=== PATIENT | male | born 1985 | race Caucasian/White ===

== ENCOUNTER 2019-03-14 00:01 | Inpatient (IN) | payer BC, OTHER ==
[~2019-03-14] VITALS: Ht 182.9 cm; Wt 61.2 kg
[2019-03-14 00:05] VITALS: BP 141/86
--- NOTE | 2019-03-14 00:05 | NUR ---
ED Nurse Note: Pt arrived ambulatory with steady gait with complaint of abdominal pain that began occuring since Saturday. Pt states pain is located mainly on LUQ and radiates throughout abdomen. Pain described as sharp and abdomen tender to touch. Pt has hx of gallbladder removal. Nausea and vomiting experienced. Pt has also been experiencing a decreased appetite. VSS.
[2019-03-14 00:28] LABS: BASOPHILS % (AUTO) 1.1 % (0.0-2.0); EOSINOPHILS % (AUTO) 2.9 % (0.0-3.0); HEMATOCRIT 43.5 % (42.0-52.0); HEMOGLOBIN 15.6 G/DL (14.2-18.0); LYMPHOCYTES % (AUTO) 38.9 % (20.0-45.0); MEAN CORPUSCULAR VOLUME 94 FL (80-99); MONOCYTES % (AUTO) 12.6 % (1.0-10.0); NEUTROPHILS % (AUTO) 44.7 % (45.0-75.0); PLATELET COUNT 167 K/UL (150-450); RED BLOOD COUNT 4.62 M/UL (4.70-6.10); RED CELL DISTRIBUTION WIDTH 10.7 % (11.6-14.8)
[2019-03-14] MEDS ORDERED: Ketorolac 30mg Inj IV ONE (00:30)
--- NOTE | 2019-03-14 00:32 | Emergency Room Report ---
History of Present Illness General Chief Complaint: Abdominal Pain Source: Patient Present Illness HPI This is a 33-year-old male who had a previous cholecystectomy. He presents with chief complaint of abdominal pain. Pain is okay in the epigastric and right upper quadrant area. Radiate to the back. Pain is 8 out of 10. Has nausea vomiting. Worse with food. No fever or chills. No diarrhea. Onset for the last 3 days. Allergies: Coded Allergies: No Known Allergies (Unverified , 03/14/19) Patient History Past Medical History: see triage record, old chart reviewed Past Surgical History: allison Pertinent Family History: none Social History: Denies: smoking Immunizations: other Reviewed Nursing Documentation: PMH: Agreed; PSxH: Agreed Review of Systems Eye: Denies: eye pain, blurred vision ENT: Denies: ear pain, nose congestion, throat swelling Respiratory: Denies: cough, shortness of breath Cardiovascular: Denies: chest pain, palpitations Gastrointestinal: Reports: abdominal pain, nausea, vomiting; Denies: diarrhea Musculoskeletal: Denies: back pain, joint pain Skin: Denies: rash Neurological: Denies: headache, numbness Endocrine: Denies: increased thirst, increased urine Hematologic/Lymphatic: Denies: easy bruising All Other Systems: negative except mentioned in HPI Physical Exam Vital Signs Date Time Temp Pulse Resp B/P (MAP) Pulse Ox O2 Delivery O2 Flow Rate FiO2 03/14/19 00:02 97.7 75 17 98 Room Air vitals normal Sp02 EP Interpretation: reviewed, normal General Appearance: well appearing, no apparent distress, alert Head: normocephalic, atraumatic Eyes: bilateral eye PERRL, bilateral eye EOMI ENT: hearing grossly normal, normal pharynx Neck: full range of motion, supple, no meningismus Respiratory: chest non-tender, lungs clear, normal breath sounds Cardiovascular #1: regular rate, rhythm, no murmur Gastrointestinal: normal bowel sounds, no mass, no organomegaly, no bruit, non- distended, tenderness - Right upper quadrant Musculoskeletal: back normal, gait/station normal, normal range of motion Psychiatric: mood/affect normal Skin: warm/dry Medical Decision Making Diagnostic Impression: Primary Impression: Retained gallstones following laparoscopic cholecystectomy ER Course Patient with right upper quadrant pain. He had a cholecystectomy done 2 years ago. Labs showed evidence of retained gallstone. His bilirubin is elevated. His LFTs are elevated. Lipase is mildly elevated. CT scan showed cholecystectomy and a common bile duct stent. There is dilated intra-and extrahepatic biliary tree. Because of this, patient will be admitted versus transfer based on his insurance. I spoke with REUBEN for [facility]. He accepted pt for transfer to [facility]. Lab Results Impression labs with elevated bilirubin and LFTs Rhythm Strip Diag. Results EP Interpretation: yes Rate: 68 Rhythm: NSR, no PVC's, no ectopy CT/MRI/US Diagnostic Results CT/MRI/US Diagnostic Results : Imaging Test Ordered: CT abd and pelvis Impression Read by radiologist. Cholecystectomy and common bile duct stent. Dilated biliary tree. No obvious stone. Last Vital Signs Date Time Temp Pulse Resp B/P (MAP) Pulse Ox O2 Delivery O2 Flow Rate FiO2 03/14/19 00:02 97.7 75 17 98 Room Air Status: improved Disposition: XFER SHT-TRM HOSP Condition: Stable Referrals: [facility],REFERRING (PCP) Misael Gamboa MD March 14, 2019 00:32
[2019-03-14 00:36] LABS: ANION GAP 8 mmol/L (5-15); BLOOD UREA NITROGEN 12 mg/dL (7-18); CARBON DIOXIDE 28 MMOL/L (21-32); CHLORIDE 101 MMOL/L (98-107); POTASSIUM 3.1 MMOL/L (3.5-5.1); SODIUM 137 MMOL/L (136-145)
[2019-03-14 00:47] LABS: ALANINE AMINOTRANSFERASE 284 U/L (12-78); ALBUMIN 3.7 G/DL (3.4-5.0); ALBUMIN/GLOBULIN RATIO 0.9 (1.0-2.7); ALKALINE PHOSPHATASE 292 U/L (46-116); ASPARTATE AMINO TRANSFERASE 107 U/L (15-37); BILIRUBIN,TOTAL 3.3 MG/DL (0.2-1.0)
--- NOTE | 2019-03-14 00:57 | Diagnostic Imaging Report ---
EXAM: CT Abdomen + Pelvis Without Intravenous Contrast CLINICAL HISTORY: PAIN TECHNIQUE: Axial computed tomography images of the abdomen + pelvis without intravenous contrast. CTDI is 11.42 mGy and DLP is 621 mGy-cm. One or more of the following dose reduction techniques were used: automated exposure control, adjustment of the mA and/or kV according to patient size, use of iterative reconstruction technique. COMPARISON: No relevant prior studies available. FINDINGS: Atelectasis at lung bases. Cholecystectomy. Biliary ectasia, both intra-and extrahepatic. CBD stent. No radiodense choledocholithiasis. No evidence for acute pancreatitis. Nonobstructive right renal stone. No ureteral calculus or hydronephrosis. No bowel obstruction. Nonspecific gastric distention may related to postprandial state. No evidence for appendicitis or other acute process. IMPRESSION: Cholecystectomy and CBD stent. Dilated intra-and extrahepatic biliary tree. No radiodense choledocholithiasis. Correlate with labs. MRCP or other follow-up could be obtained, as clinically indicated. No evidence for appendicitis or other acute process. Nonobstructive right renal stone.
[2019-03-14] MEDS ORDERED: Morphine Sulfate 4mg/ml Inj (IV USE ONLY) IVP ONE ×2 (01:00→03:45)
--- NOTE | 2019-03-14 02:00 | NUR ---
ED Nurse Note: Pt resting comfortably. Showing no signs of acute distress. VSS. Will continue to monitor
[2019-03-14 04:02] LABS: APPEARANCE,URINE CLOUDY; BILIRUBIN, URINE NEGATIVE (NEGATIVE); GLUCOSE, URINE (UA) NEGATIVE (NEGATIVE); KETONES,URINE NEGATIVE (NEGATIVE); LEUKOCYTE ESTERASE ,URINE NEGATIVE (NEGATIVE); NITRITE,URINE NEGATIVE (NEGATIVE); PH,URINE 7 (4.5-8.0); PROTEIN,URINE 1+ (NEGATIVE); UROBILINOGEN,URINE 4 MG/DL (0.0-1.0)
--- NOTE | 2019-03-14 04:15 | NUR ---
ED Nurse Note: Pt transfered to M/S floor. Report given to LETY Dumont. Pt A/Ox4, IV site intact and patent. Pt resting comfortably, VSS. Showing no signs of acute distress. Pt taken to floor and accompanied by gold layer. Belongings taken with patient along with belongings list.
[2019-03-14 04:18] LABS: COLOR,URINE YELLOW
[2019-03-14 04:30] VITALS: BP 150/102
--- NOTE | 2019-03-14 04:50 | NUR ---
NURSE NOTES: Received report from LETY Stearns from ER. Patient arrived via mother lee at the bedside. IV access asymptomatic running KCl 10meq/100ml from ER. Pt oriented to room. Call light and belongings within reach. Pt appears fatigued and anxious. Called Dr Florence, ordered NPO and NS at 100ml/hr. Dr Florence will arrive shortly.
--- NOTE | 2019-03-14 07:38 | NUR ---
HAND-OFF: Report given to LETY Patrick. Patient asleep, no s/s of acute distress.
--- NOTE | 2019-03-14 07:42 | NUR ---
NURSE NOTES: Received report from Dione DAVIDSON. Patient is asleep during rounds, no acute distress noted. IV intact and asymptomatic, IVF running per order. Per report, Dr. Florence was contacted regarding admission orders this morning at approximately 0500, MD stated he will be in to see patient and enter admission orders. Side rails upx2, bed low and locked, call light in reach. Will continue to monitor.
[2019-03-14 08:00] VITALS: BP 137/86
[2019-03-14] MEDS ORDERED: OMEPRAZOLE40 M1 ORAL (08:07)
[2019-03-14] MEDS ORDERED: D5NS 1,000 ML IV SCH ×2 (08:15→16:00)
[2019-03-14] MEDS: Morphine Sulfate 2mg/ml Inj(IV/IM USE ONLY) IVP PRN ×2 (08:30→12:56)
--- NOTE | 2019-03-14 09:00 | History and Physical Report ---
DATE OF ADMISSION: 03/14/2019 REASON FOR ADMISSION: Abdominal pain. HISTORY OF PRESENT ILLNESS: The patient is a 33-year-old gentleman, who previously had a cholecystectomy two years ago at [facility]. He presented overnight for complaints of abdominal pain. States the abdominal pain started approximately Saturday and radiates to his back on an 8/10 scale. No nausea, vomiting, or diarrhea. States that he drinks only heavily on Saturday, only once a week. Denies any illicit drug use. He was resting comfortably with complaints of right upper quadrant pain. ALLERGIES: No known drug allergies. PAST MEDICAL HISTORY: Cholecystitis. PAST SURGICAL HISTORY: Cholecystectomy. SOCIAL HISTORY: Denies tobacco, illicit drug use. Does drink on a social regular basis. FAMILY HISTORY: Positive for hypertension. REVIEW OF SYSTEMS: NEUROLOGIC: The patient denies headache, change in vision, syncope, or presyncopal episodes. CARDIOVASCULAR: No current chest pain, palpitations, or angina. PULMONARY: No difficulty breathing, productive cough, or sputum. GASTROINTESTINAL/GENITOURINARY: The patient complaining of right upper quadrant abdominal pain and some nausea, but no diarrhea. ENDOCRINOLOGY: No night sweats, fevers, or chills. MUSCULOSKELETAL: The patient is feeling weak, tired, and fatigue. LABORATORY DATA: Laboratories dated March 14, 2019, potassium 3.1, sodium 137, creatinine 1. AST and ALT 107 and 284 respectively. Alkaline phosphatase 292. Lipase 471. White cell count 4, hemoglobin 15.6, and platelet count 167. PHYSICAL EXAMINATION: VITAL SIGNS: Blood pressure 150/102, respiratory rate 17, pulse 98, temperature , and 99% saturation on room air. GENERAL: The patient awake, alert, in no overt distress. HEENT: Extraocular muscles intact. No lymphadenopathy noted. CARDIOVASCULAR: S1, S2. No rubs or gallops. Regular rate. PULMONARY: Clear to auscultation bilaterally. No rales, rhonchi, or wheezes. ABDOMEN: Nondistended and nontender. Good bowel sounds. EXTREMITIES: No edema noted. ASSESSMENT AND PLAN: 1. Abdominal pain with transaminitis and elevated bilirubin and lipase. CT of the abdomen and pelvis did demonstrate intra and extrahepatic dilated biliary tree. The patient did have a previous cholecystectomy. General Surgery consult has been placed for further evaluation. The patient will be placed on NPO with IV hydrations and pain management. 2. DVT prophylaxis with SCDs. 3. Dehydration. At this time, the patient will be initiated on IV fluids. Edenilson Florence MD DR: NETO JOB#: [id number] CC:
--- NOTE | 2019-03-14 09:58 | NUR ---
NURSE NOTES: Informed Dr. Florence of patient's fever. MD aware, orders given and entered. Will carry out as ordered.
--- NOTE | 2019-03-14 11:39 | NUR ---
NURSE NOTES: Patient still febrile but temperature decreasing. Ice packs placed in bilateral axilla, blankets removed. Will continue to monitor.
[2019-03-14 11:53] VITALS: BP 129/58
--- NOTE | 2019-03-14 14:14 | NUR ---
CASE MANAGEMENT: REVIEW 33Y/M PRESENTED TO ED FROM HOME CC: ABD PAIN . VOMITING . PMHX CHOLECYSTECTOMY . COMMON BILE DUCT STENT SI: ABD PAIN T 102.5 HR 113 RR 22 BP 129/58 SAT 100% ROOM AIR WBC 4.0 T BILI 3.3 D BILI 3.0 AST 107 ALT 284 ALK PHOS 292 IS: TORADOL IV X1 ZOFRAN IV X1 MORPHINE IV X1 KCl 10mEq IVF X1 NS IVF BOLUS X1 PATIENT ADMITTED TO MED/SURG UNIT 03/14/2019 DCP: PATIENT IS FROM HOME
--- NOTE | 2019-03-14 15:26 | NUR ---
CASE MANAGEMENT: DCPNOTE PER MD ORDER PATIENT REFERRED TO [facility] [place] [place] TO TRANSFER TO A CONTRACTED HOSPITAL S/W [facility] [place] [place] [phone] / WORKING ON GETTING AND BED . TRANSPORTATION ARRANGEMENTS WILL BE GIVEN TO UNIT RN. CHARGE NURSE JAVIER MOLINA . UNIT NURSE TRAE MOLINA
--- NOTE | 2019-03-14 15:46 | Consultation ---
History of Present Illness General Date patient seen: March 14, 2019 Reason for Hospitalization: Abdominal Pain Present Illness HPI This is a 33-year-old male who presented to [facility] complaining of worsening right upper quadrant abdominal pain with radiation to the back with associated nausea emesis and fevers. Patient states that approximately 3 or 4 days ago began no subjective fevers. Since he has developed abdominal pain which is sharp 10 out of 10 right upper quadrant pain with radiation to the upper back and is associated with nausea and emesis. States no similar symptoms in the past. Has a history of cholecystectomy which was done at [facility] 2 years ago. States he has been fine since until recent events. On admission identified to have abnormal labs elevated LFTs elevated T bili elevated lipase history of cholecystectomy and common bile duct stent. Surgery called to evaluate. Allergies: Coded Allergies: No Known Allergies (Unverified , 03/14/19) Medication History Scheduled Omeprazole (Omeprazole), 40 MG ORAL DAILY, (Reported) Patient History History Provided By: Patient, Medical Record, PMD Healthcare decision maker Resuscitation status Advanced Directive on File Past Medical/Surgical History Past Medical/Surgical History: (1) Abdominal pain (2) Biliary stent obstruction (3) Cholangitis Review of Systems Review of Symptoms General ROS: no weight loss or fever Psychological ROS: no depression or mood changes, no memory loss Ophthalmic ROS: no visual changes or eye irritation ENT ROS: no nasal congestion, hearing loss, dizziness Allergy and Immunology ROS: no allergic symptoms or urticaria Hematological and Lymphatic ROS: no swollen glands, unusual bleeding or bruising Endocrine ROS: no polyuria, polydipsia, weight changes, temperature intolerance Respiratory ROS: no cough, shortness of breath, or wheezing Cardiovascular ROS: no chest pain or dyspnea on exertion Gastrointestinal ROS: abdominal pain, no bright red blood in stool. Musculoskeletal ROS: no myalgias or arthralgias Neurological ROS: no TIA or stroke symptoms Dermatological ROS: no new or changing skin lesions, rashes or pruritis Physical Exam Physical Exam General appearance: alert, cooperative, no distress, appears stated age Head: Normocephalic, without obvious abnormality, atraumatic Eyes: conjunctivae/corneas clear. PERRL, EOM's intact. Fundi benign Throat: Lips, mucosa, and tongue normal. Teeth and gums normal Neck: supple, symmetrical, trachea midline, no adenopathy, thyroid: not enlarged, symmetric, no tenderness/mass/nodules, no carotid bruit and no JVD Lungs: clear to auscultation bilaterally Heart: regular rate and rhythm, S1, S2 normal, no murmur, click, rub or gallop Abdomen: soft, tender. Bowel sounds normal. No masses, no organomegaly Extremities: extremities normal, atraumatic, no cyanosis or edema Pulses: 2+ and symmetric Skin: Skin color, texture, turgor normal. No rashes or lesions Neurologic: Grossly normal Last 24 Hour Vital Signs Date Time Temp Pulse Resp B/P (MAP) Pulse Ox O2 Delivery O2 Flow Rate FiO2 03/14/19 13:26 101.9 03/14/19 13:20 101.9 03/14/19 11:53 101.5 113 22 129/58 (81) 100 03/14/19 11:34 101.5 03/14/19 09:39 102.5 98 03/14/19 09:00 Room Air 03/14/19 08:00 102.8 106 21 137/86 (103) 97 03/14/19 04:57 Room Air 03/14/19 04:30 99.0 98 17 150/102 (118) 99 03/14/19 04:15 98.7 81 22 129/99 99 Room Air 03/14/19 01:44 97.7 03/14/19 01:15 97.7 03/14/19 00:05 75 17 Room Air 03/14/19 00:05 97.7 78 17 141/86 98 Room Air 03/14/19 00:02 97.7 75 17 98 Room Air Intake and Output 03/13/19 03/14/19 18:59 06:59 Intake Total 200 ml Balance 200 ml Intake IV Total 200 ml Laboratory Tests Test 03/14/19 00:20 03/14/19 03:45 03/14/19 12:53 White Blood Count 4.0 K/UL (4.8-10.8) L Red Blood Count 4.62 M/UL (4.70-6.10) L Hemoglobin 15.6 G/DL (14.2-18.0) Hematocrit 43.5 % (42.0-52.0) Mean Corpuscular Volume 94 FL (80-99) Mean Corpuscular Hemoglobin 33.7 PG (27.0-31.0) H Mean Corpuscular Hemoglobin Concent 35.8 G/DL (32.0-36.0) Red Cell Distribution Width 10.7 % (11.6-14.8) L Platelet Count 167 K/UL (150-450) Mean Platelet Volume 8.4 FL (6.5-10.1) Neutrophils (%) (Auto) 44.7 % (45.0-75.0) L Lymphocytes (%) (Auto) 38.9 % (20.0-45.0) Monocytes (%) (Auto) 12.6 % (1.0-10.0) H Eosinophils (%) (Auto) 2.9 % (0.0-3.0) Basophils (%) (Auto) 1.1 % (0.0-2.0) Sodium Level 137 MMOL/L (136-145) Potassium Level 3.1 MMOL/L (3.5-5.1) L Chloride Level 101 MMOL/L (98-107) Carbon Dioxide Level 28 MMOL/L (21-32) Anion Gap 8 mmol/L (5-15) Blood Urea Nitrogen 12 mg/dL (7-18) Creatinine 1.0 MG/DL (0.55-1.30) Estimat Glomerular Filtration Rate > 60 mL/min (>60) Glucose Level 109 MG/DL (74-106) H Calcium Level 9.0 MG/DL (8.5-10.1) Total Bilirubin 3.3 MG/DL (0.2-1.0) H Direct Bilirubin 3.0 MG/DL (0.0-0.3) H Aspartate Amino Transf (AST/SGOT) 107 U/L (15-37) H Alanine Aminotransferase (ALT/SGPT) 284 U/L (12-78) H Alkaline Phosphatase 292 U/L (46-116) H Total Protein 7.8 G/DL (6.4-8.2) Albumin 3.7 G/DL (3.4-5.0) Globulin 4.1 g/dL Albumin/Globulin Ratio 0.9 (1.0-2.7) L Lipase 471 U/L (73-393) H Urine Color Yellow Urine Appearance Cloudy Urine pH 7 (4.5-8.0) Urine Specific [place] 1.015 (1.005-1.035) Urine Protein 1+ (NEGATIVE) H Urine Glucose (UA) Negative (NEGATIVE) Urine Ketones Negative (NEGATIVE) Urine Blood Negative (NEGATIVE) Urine Nitrite Negative (NEGATIVE) Urine Bilirubin Negative (NEGATIVE) Urine Urobilinogen 4 MG/DL (0.0-1.0) H Urine Leukocyte Esterase Negative (NEGATIVE) Urine RBC 0-2 /HPF (0 - 0) H Urine WBC 0-2 /HPF (0 - 0) Urine Squamous Epithelial Cells Few /LPF (NONE/OCC) Urine Amorphous Sediment Many /LPF (NONE) H Urine Bacteria Occasional /HPF (NONE) Urine Opiates Screen Positive (NEGATIVE) H Urine Barbiturates Screen Negative (NEGATIVE) Phencyclidine (PCP) Screen Negative (NEGATIVE) Urine Amphetamines Screen Negative (NEGATIVE) Urine Benzodiazepines Screen Negative (NEGATIVE) Urine Cocaine Screen Negative (NEGATIVE) Urine Marijuana (THC) Screen Negative (NEGATIVE) Height (Feet): 6 Weight (Pounds): 135 Medications Current Medications Medications (Trade) Dose Ordered Sig/Carlota Route PRN Reason Start Time Stop Time Status Last Admin Dose Admin Dextrose (Dextrose 50%) 25 ml Q30M PRN IV Hypoglycemia 03/14/19 08:00 04/13/19 07:59 Dextrose (Dextrose 50%) 50 ml Q30M PRN IV Hypoglycemia 03/14/19 08:00 04/13/19 07:59 Dextrose/Sodium Chloride 1,000 ml @ 75 mls/hr [id number] IV 03/14/19 08:15 04/13/19 08:14 03/14/19 08:29 Ibuprofen (Advil) 200 mg Q6H PRN ORAL FEVER 03/14/19 10:00 04/13/19 09:59 03/14/19 10:03 Morphine Sulfate (Morphine Sulfate) 1 mg Q4H PRN IVP For Pain 03/14/19 08:00 03/21/19 07:59 03/14/19 12:56 Ondansetron HCl (Zofran) 4 mg Q6H PRN IVP Nausea & Vomiting 03/14/19 08:00 04/13/19 07:59 Pantoprazole (Protonix) 40 mg DAILY ORAL 03/14/19 09:00 04/13/19 08:59 03/14/19 08:27 Assessment/Plan Problem List: (1) Cholangitis ICD Codes: K83.09 - Other cholangitis SNOMED: 34039073 (2) Abdominal pain Assessment & Plan: 33M hx of prior lap allison 2 years ago with cbd stent presented with RUQ pain, n/v, febrile, abnormal labs npo iv fluids iv abx GI consult for ERCP US abd MRCP will follow with recs thank you ICD Codes: R10.9 - Unspecified abdominal pain SNOMED: 24011071 (3) Biliary stent obstruction ICD Codes: T85.590A - Other mechanical complication of bile duct prosthesis, initial encounter SNOMED: 184641050 Thaddeus Dawkins March 14, 2019 15:46
[2019-03-14 15:58] VITALS: BP 138/79
[2019-03-14] MEDS ORDERED: Piperacillin/Tazobactam 3.375 GM in NS 110 ML IVPB SCH (16:00)
[2019-03-14] MEDS ORDERED: Morphine Sulfate 2mg/ml Inj(IV/IM USE ONLY) IVP PRN (16:00)
[2019-03-14 16:56] LABS: INR 0.9 (0.9-1.1)
--- NOTE | 2019-03-14 18:30 | NUR ---
CHARGE NURSE NOTES: Received a call from [employer], pt is going to [facility] Rm 612. ETA at 08:15 PM, to be picked up by [facility] ambulance [phone]. RN Celina made aware.
--- NOTE | 2019-03-14 18:46 | NUR ---
NURSE NOTES: Called and gave report to Yoshi DAVIDSON at [facility].
--- NOTE | 2019-03-14 19:39 | NUR ---
NURSE NOTES: Patient discharged. No acute distress upon discharge, report given to [facility]. Belongings given to ambulance personnel. Patient transferred safely to [facility]. IV locked per order, IV patent and asymptomatic on discharge. Patient escorted off unit by ambulance personnel at 1936.
--- NOTE | 2019-03-15 09:40 | NUR ---
CASE MANAGEMENT: CM review and clinical information (face sheet/ ER MD notes/ H&P) faxed to [facility] @ [phone].
--- NOTE | 2019-03-17 13:27 | Discharge Summary ---
Discharge Summary Discharge Summary _ DATE OF ADMISSION: 03/14/2019 DATE OF DISCHARGE: 03/14/2019 DISCHARGED BY: Dr. Dr.De Al REASON FOR ADMISSION: 33 years old male with history of prior cholecystectomy, no other significant medical history, presented with complaint of abdominal pain for the past 3 days. Pain described in epigastric and right upper quadrant areas with radiation to back. Patient reported nausea and vomiting. Pain worse with the food and quantified 8 out of 10 on a scale 1-10. Patient denied fever and chills Patient denied diarrhea. Upon evaluation vital signs were stable. CT of the abdomen and pelvis demonstrated cholecystectomy and common bile duct stent. Dilated intra-and extrahepatic biliary tree. No radiodense choledocholithiasis. No evidence of appendicitis or other acute process. Nonobstructive right renal stone. Laboratory work-up revealed no leukocytosis, stable hemoglobin and hematocrit. Potassium 3.1. Total bilirubin 3.3, direct bilirubin 3.0. AST 107, ALT 284, alkaline phosphatase 292. Lipase 471. Urine toxicology screen was positive for opiates ( done after patient received analgesic in the emergency department). Urinalysis revealed no evidence of urinary tract infection. Initially unable to transfer patient to [facility]. Patient subsequently was admitted to medical surgical floor for further management. CONSULTANTS: surgery Dr. Dawkins [facility] COURSE: Patient admitted to medical surgical floor Patient started on IV fluids and was kept n.p.o. General surgery consult was requested. Pain management was addressed. Symptomatic treatment provided. Potassium replaced. DVT prophylaxis with SCD provided. Surgeon seen and evaluated patient. Per surgeon patient may have have cholangitis versus pancreatitis versus biliary stent obstruction. Patient started on empiric antibiotics. GI consult was requested. Surgeon recommended ERCP and ultrasound of the abdomen followed by MRCP. At that time bed became available at the [facility] , and patient subsequently was transferred per insurance reason via ambulance. FINAL DIAGNOSES: Abdominal pain with transaminitis, elevated bilirubin and lipase Dehydration Possible cholangitis versus pancreatitis versus biliary stent obstruction DISCHARGE MEDICATIONS: List of medication was sent to accepting facility. DISCHARGE INSTRUCTIONS: Patient was transferred to [facility] per insurance reason. I have been assigned to dictate discharge summary for this account. I was not involved in the patient's management. Wanda Brooks NP March 17, 2019 13:27
== END 2019-03-14 19:36 | disposition short-term general hospital (02) | DRG 391 ==
LOC: EMR 00:25 → 3E 03:33 → EDBEDREQ 03:44
DX: R10.9 Unspecified abdominal pain (principal); K85.90 Acute pancreatitis without necrosis or infection, unspecified; K83.09 Other cholangitis; T85.590A Other mechanical complication of bile duct prosthesis, initial encounter; R74.0 Nonspecific elevation of levels of transaminase and lactic acid dehydrogenase [LDH]; R74.8 Abnormal levels of other serum enzymes; Y84.8 Other medical procedures as the cause of abnormal reaction of the patient, or of later complication, without mention of misadventure at the time of the procedure; Z90.49 Acquired absence of other specified parts of digestive tract
CPT/HCPCS: 36415; 74176; 80053; 80307; 81003; 82248; 83690; 85025; 85610; 85730; 87040; 87086; 87181; 96374; 96375; 96376; 99285; J2405